=== PATIENT | male | born 1985 | race Caucasian/White ===

== ENCOUNTER 2017-06-10 19:48 | Emergency (ER) | payer MEDICAID ==
[2017-06-10 20:17] VITALS: BP 132/78; PULSE 80; RESP 20; TEMP 98.4; O2SAT 98
--- NOTE | 2017-06-10 21:00 | C.PDOC ---
History Of Present Illness 31 y/o male c/o right ear pain x 5 days, no fever or chills, no discharge from ear. pt feels like there is a 'ball' in his ear. no analgesics taken. Time Seen by Provider: 06/10/17 20:43 Chief Complaint (Nursing): ENT Problem History Per: Patient History/Exam Limitations: None Onset/Duration Of Symptoms: Days (5) Current Symptoms Are (Timing): Worse Quality (Ear): Pain W/Touch. denies: Discharge, Foreign Body Symptoms Have Been: Continuous Severity: Moderate Pain Scale Rating Of: 8 Anticoagulant/Antiplatlet Use?: No Past Medical History Reviewed: Historical Data, Nursing Documentation, Vital Signs Vital Signs: Last Vital Signs Temp 98.4 F 06/10/17 20:15 Pulse 80 06/10/17 20:15 Resp 20 06/10/17 20:15 BP 132/78 06/10/17 20:15 Pulse Ox 98 06/11/17 05:50 - Medical History PMH: No Chronic Diseases Family History: States: Unknown Family Hx - Social History Hx Tobacco Use: No Hx Alcohol Use: Yes Hx Substance Use: No - Immunization History Hx Tetanus Toxoid Vaccination: No Hx Influenza Vaccination: No Hx Pneumococcal Vaccination: No Review Of Systems Constitutional: Negative for: Fever, Chills Eyes: Negative for: Pain ENT: Positive for: Ear Pain. Negative for: Ear Discharge, Throat Pain Respiratory: Negative for: Cough Skin: Negative for: Rash Neurological: Negative for: Weakness, Numbness Physical Exam - Physical Exam Appears: Non-toxic, No Acute Distress (mildly uncomfortable) Head: Atraumatic, Normacephalic Eye(s): bilateral: Normal Inspection Ear(s): Right: TM Erythema (to tm and canal, no debris noted,), Other (tender with movement of tragus) Nose: No Discharge Oral Mucosa: Moist Tongue: Normal Appearing Lips: Normal Appearing Throat: No Erythema, No Exudate Neck: Supple Lymphatic: Adenopathy (right cervical tender adenopathy) ED Course And Treatment O2 Sat by Pulse Oximetry: 98 Medical Decision Making Medical Decision Making: right ear pain and redness, tx for otitis media Disposition Counseled Patient/Family Regarding: Diagnosis, Need For Followup, Rx Given - Disposition Referrals: Binu Rodriguez MD [Staff Provider] - Harshal Dasilva MD [Staff Provider] - Disposition: HOME/ ROUTINE Disposition Time: 21:01 Condition: STABLE Additional Instructions: Por favor tome antibiticos segn lo prescrito. Nabesna Tylenol o ibuprofeno para el dolor cada 6 horas. Chen un seguimiento con el Dr. Dasilva o con el Dr. Rodriguez (mdico de odos / nariz / garganta) en unos zhao. Regrese a la marlene de emergencias por cualquier empeoramiento de los sntomas. Please take antibiotics as prescribed. Take Tylenol or ibuprofen for pain every 6 hours. Follow up in with Dr Dasilva or with Dr Rodriguez (ear/nose/throat doctor) in a few days. Return to ER for any worsening symptoms. Prescriptions: Amoxicillin [Amoxil 500 mg Cap] 500 mg PO TID #21 cap Instructions: Otitis Media (ED) Forms: [employer] (Icelandic) Print Language: LITHUANIAN - Clinical Impression Clinical Impression: Otitis media
[2017-06-10] MEDS ORDERED: Amoxicillin-Clav 500-125 mg Tab PO ONE (21:03)
== END 2017-06-10 21:17 | disposition home or self-care (01) ==
LOC: C.ER 19:48
DX: H66.91 Otitis media, unspecified, right ear (principal)

== ENCOUNTER 2018-01-17 20:27 | Emergency (ER) | payer SELFPAY ==
[2018-01-17 20:44] VITALS: TEMP 98.3
[2018-01-17] MEDS ORDERED: Aspirin 325 mg EC Tablets PO STA (20:52)
--- NOTE | 2018-01-17 21:02 | C.PDOC ---
History Of Present Illness 32 year old male with no past medical history states he was upstairs visiting a family member when a sudden onset of tightness in his left chest, associated with palpitations occurred. Patient reports he was also feeling short of breath and a little dizzy. Patient states he has had prior episodes similar to this, but never sought medical attention. Family member also states she would find patient in the bathroom having similar episodes. Patient denies fever, nausea, vomiting. Time Seen by Provider: 01/17/18 20:46 Chief Complaint (Nursing): Chest Pain History Per: Patient History/Exam Limitations: no limitations Onset/Duration Of Symptoms: Sudden Onset Current Symptoms Are (Timing): Still Present Quality: Tightness Associated Symptoms: denies: Nausea Recent travel outside of the [place]: No Additional History Per: Family Past Medical History Reviewed: Historical Data, Nursing Documentation, Vital Signs Vital Signs: Last Vital Signs Temp 98.3 F 01/17/18 20:35 Pulse 86 01/17/18 20:35 Resp 18 01/17/18 20:35 BP 145/86 01/17/18 20:35 Pulse Ox 99 01/17/18 21:13 Surgical History: No Surg Hx Family History: States: No Known Family Hx - Social History Hx Tobacco Use: No Hx Alcohol Use: Yes Hx Substance Use: No - Immunization History Hx Tetanus Toxoid Vaccination: No Hx Influenza Vaccination: No Hx Pneumococcal Vaccination: No Review Of Systems Constitutional: Negative for: Fever Cardiovascular: Positive for: Chest Pain (tightness to left side of chest), Palpitations Respiratory: Positive for: Shortness of Breath. Negative for: Wheezing Gastrointestinal: Negative for: Nausea, Vomiting Neurological: Negative for: Weakness, Numbness Physical Exam - Physical Exam Appears: Non-toxic, No Acute Distress Skin: Warm, Dry, No Rash Head: Atraumatic, Normacephalic Eye(s): bilateral: Normal Inspection Oral Mucosa: Moist Neck: Supple Chest: Symmetrical Cardiovascular: Rhythm Regular Respiratory: Normal Breath Sounds, No Rales, No Rhonchi, No Wheezing Gastrointestinal/Abdominal: Soft Neurological/Psych: Oriented x3 Gait: Steady ED Course And Treatment - Laboratory Results Result Diagrams: 01/17/18 21:08 01/17/18 21:08 Lab Interpretation: Normal ECG: Interpreted By Me ECG Rhythm: Sinus Rhythm ECG Interpretation: No Acute Changes O2 Sat by Pulse Oximetry: 99 (RA) Pulse Ox Interpretation: Normal - Radiology CXR: Interpreted by Me CXR Interpretation: Yes: No Acute Disease Reevaluation Time: 22:26 Reassessment Condition: Improved (Patient comfortable and requesting discharge.) Medical Decision Making Medical Decision Making: Impression: chest pain Plan: * EKG * labs * X-Ray chest, one view * Aspirin Disposition Counseled Patient/Family Regarding: Studies Performed, Diagnosis, Need For Followup - Disposition Referrals: Harshal Dasilva MD [Primary Care Provider] - Disposition: HOME/ ROUTINE Disposition Time: 22:26 Condition: IMPROVED Instructions: Chest Pain (DC), Palpitations Forms: [employer] (Italian) Print Language: TELUGU - Clinical Impression Clinical Impression: Chest pain, Palpitations - Scribe Statement The provider has reviewed the documentation as recorded by the Mauricio Cunha Gokul Provider Attestation: All medical record entries made by the Mauricio were at my direction and personally dictated by me. I have reviewed the chart and agree that the record accurately reflects my personal performance of the history, physical exam, medical decision making, and the department course for this patient. I have also personally directed, reviewed, and agree with the discharge instructions and disposition.
[2018-01-17 21:11] LABS: BASO # 0.1 K/uL (0.0-0.2); BASO % 0.7 % (0.0-2.0); EOS # 0.3 K/uL (0.0-0.7); EOS % 3.2 % (0.0-4.0); HEMOGLOBIN 15.4 g/dL (12.0-18.0); LYMPH # 1.4 K/uL (1.0-4.3); LYMPH % 17.8 % (20.0-40.0); MEAN CELL VOLUME 81.2 fL (80.0-94.0); MEAN CORPUSCULAR HEMOGLOBIN 27.4 pg (27.0-31.0); MEAN CORPUSCULAR HGB CONC 33.7 g/dL (33.0-37.0); MEAN PLATELET VOLUME 8.2 fL (7.2-11.7); MONO # 0.8 K/uL (0.0-0.8); MONO % 9.8 % (0.0-10.0); NEUT # 5.5 K/uL (1.8-7.0); NEUT % 68.5 % (50.0-75.0); NRBC % 0.3 % (0.0-2.0); RBC 5.62 Mil/uL (4.40-5.90); RED CELL DISTRIBUTION WIDTH 14.3 % (11.5-14.5)
[2018-01-17 21:49] LABS: ALB/GLOB RATIO 1.3 (1.0-2.1); ALBUMIN 4.4 g/dL (3.5-5.0); ALT/SGPT 41 U/L (21-72); AST/SGOT 34 U/L (17-59); BLOOD UREA NITROGEN 16 mg/dL (9-20); CALCIUM 9.1 mg/dl (8.6-10.4); GFR AFRICAN-AMERICAN > 60; GFR NON-AFRICAN AMERICAN > 60
[2018-01-17 22:29] VITALS: BP 112/72; PULSE 76; RESP 20; O2SAT 98
--- NOTE | 2018-01-18 08:33 | RAD ---
Date of service: 01/17/2018 PROCEDURE: CHEST RADIOGRAPH, 1 VIEW HISTORY: chest pain COMPARISON: Portable chest 12/02/2014. FINDINGS: LUNGS: Relatively low pulmonary volume reiterated. No definite interval acute cardiopulmonary disease appreciable, taking differences in technique into account. PLEURA: No pneumothorax or pleural fluid seen. CARDIOVASCULAR: Normal. OSSEOUS STRUCTURES: No significant abnormalities. VISUALIZED UPPER ABDOMEN: Normal. OTHER FINDINGS: None. IMPRESSION: No interval acute cardiopulmonary disease appreciated.
--- NOTE | 2018-01-19 12:09 | CARD ---
APPROVED REPORT Date of service: 01/17/2018 EKG Measurement Heart [id number] <Conclusion> Normal sinus rhythm Normal ECG
== END 2018-01-17 22:28 | disposition home or self-care (01) ==
LOC: C.ER 20:27 → SUPCPDRO 20:27 → C.ER 22:28
DX: R07.9 Chest pain, unspecified (principal); R00.2 Palpitations